=== PATIENT | male | born 1955 | race Asian ===

== ENCOUNTER 2020-02-05 12:30 | Emergency (ER) | payer BC, MEDICAID ==
[~2020-02-05] VITALS: Ht 175.3 cm; Wt 73.5 kg
[2020-02-05 12:57] VITALS: BP_SYST 160
[2020-02-05 14:46] VITALS: BP_SYST 160
== END 2020-02-05 14:46 | disposition home or self-care (01) ==
LOC: SED 12:30
DX: S33.5XXA Sprain of ligaments of lumbar spine, initial encounter (principal); W18.39XA Other fall on same level, initial encounter; Y93.89 Activity, other specified; Y92.89 Other specified places as the place of occurrence of the external cause; Y99.8 Other external cause status
CPT/HCPCS: 72131; 76376; 99284